=== PATIENT | female | born 1995 | race Caucasian/White ===

== ENCOUNTER 2020-06-16 16:17 | Outpatient (CLI) | payer OTHER ==
[~2020-06-16] VITALS: Ht 160 cm; Wt 126.1 kg
[2020-06-16 16:39] VITALS: BP 132/61
[2020-06-16] MEDS ORDERED: PRENTAB53 PO (16:42)
[2020-06-16] MEDS ORDERED: ASPI81CH33 PO (16:42)
--- NOTE | 2020-06-16 17:26 | IPNPDOC ---
Obstetrical Progress Note Date of Service Jun 16, 2020 Subjective Patient was at BIN appt and noted to have concern for tachycardia with FHR at 180bpm reported by Dr. Cole. BPP was completed by Dr. Cole that was reported to be 8/8 but unable to complete NST due to end of day in clinic. Patient reports good FM. Denies VB, LOF, or ctx's. Objective Vital Signs Date Time Temp Pulse Resp B/P (MAP) Pulse Ox O2 Delivery O2 Flow Rate FiO2 06/16/20 16:39 96.8 90 18 132/61 (84) Assessment Heart Rate (FHR): 150 Variability: Moderate Accelerations: Positive Decelerations: None Heart Rate Tracing: Category I Tocometer Contractions: No Assessment and Plan Status: Reassuring Additional Comments 24yo at 34+4wks presenting for NST due to concern for tachycardia on doppler in clinic. Patient found to have FHR baseline at 150bpm with mod variability, +accels, no decels for reactive NST. Patient counseled on FKCs, la bor precautions. She will f/u for BIN appt as scheduled. ISAK ASENCIO DO Jun 16, 2020 17:26
== END 2020-06-16 17:27 | disposition home or self-care (01) ==
LOC: M LDO 16:17
DX: O36.8331 Maternal care for abnormalities of the fetal heart rate or rhythm, third trimester, fetus 1 (principal); Z3A.34 34 weeks gestation of pregnancy
CPT/HCPCS: 59025; G0378; G0463

== ENCOUNTER → 2020-07-06 | Outpatient (CLI) | payer OTHER ==
[~2020-07-06] MED LIST: ASPI81CH33 PO; PRENTAB53 PO
--- NOTE | 2020-07-06 08:09 | REP ---
INDICATION: GROWTH COMPARISON: None. TECHNIQUE: Transabdominal obstetrical ultrasound with color Doppler evaluation. FINDINGS: Examination demonstrates a single live intrauterine in cephalic presentation. motion is identified by technologist. Placenta is noted anterior and grade 2 without evidence for placenta previa or abruption. Amniotic fluid volume is normal. Cervix appears closed.. Gestational age by LMP 37 weeks 3 days with DIANA 07/24/2020. Gestational age by current measurements 35 weeks 0 days with DIANA 08/10/2020. FHR equals 163 beats per minute. BPD: 8.4 cm 33 weeks 6 days HC: 31.8 cm 35 weeks 6 days AC: 33.1 cm 37 weeks 0 days FL: 6.8 cm 34 weeks 5 days HL: 5.9 cm 33 weeks 6 days HC/AC: 0.96 Estimated weight 2811 grams (23rdpercentile). ELYSSA: 8.7 cm (7.4-24.2) Umbilical artery SD ratio: 2.07 (1.57-3.40) IMPRESSION: Single live intrauterine in cephalic presentation age by current biometric measurements are less than expected based on given age by LMP. However, weight stays within normal range. <Electronically signed by Dontae Meng > 07/06/20 [id number]
== END ==
LOC: M RAD 06:53
PROVIDERS: ATTEND Obstetrics & Gynecology
DX: Z34.03 Encounter for supervision of normal first pregnancy, third trimester (principal); Z3A.35 35 weeks gestation of pregnancy

== ENCOUNTER 2020-07-26 08:09 | Inpatient (IN) | payer OTHER ==
[~2020-07-26] VITALS: Ht 160 cm; Wt 132.8 kg
[2020-07-26] VITALS (9 sets, daily range): BP systolic 109–142; BP diastolic 57–81
--- NOTE | 2020-07-26 10:10 | HPEPDOC ---
Obstetrical History & Physical General Date of Admission Jul 26, 2020 at 08:09 History of Present Illness 24 yo at 40+2 weeks gestation by LMP of [id number] c/w 11+1 week US on 16Ju l20 presents to L&D today for IOL for morbid obesity. Ms. Bonilla reports feeling well today and has no complaints. She denies any vaginal bleeding, leakage of fluid, or significant pelvic pain. She endorses movement. Chief Complaint: Induction of labor Information Provided By: Patient Age: 24 : 1 Term: 0 Pre-term: 0 Abortions: 0 Livin Care Care: Good Care Dating Final EDC: Jul 24, 2020 Final EDC for Daily Update: Jul 24, 2020 Final EDC by: LMP (LMP of [id number]) LMP: Oct 18, 2019 (DIANA by LMP of [id number] c/w 11+1 week US on [id number]) Antepartum Course Diagnos(e)s Morbid obesity --> pre BMI ~50 Varicella non immune Past Medical History Past Obstetrical History : Past Obstetrical History: Primgravida [employer] History: No pertinent history Past Medical History Medical History Asthma Surgical History: [place] teeth Family History Significant Family History: No pertinent family hx Social History Marital Status: Family situation: Spouse/partner home Psychosocial History: No pertinent psych hx * Smoker: non-smoker Alcohol: Denies Drugs: denies Imunizations Tdap status: needs Influenza Status: needs Allergies Coded Allergies: No Known Allergies (Verified Allergy, Unknown, 06/16/20) Medications Scheduled Vit,Calc76/Iron/Folic (Prenatabs Rx Tablet) 1 Each Tablet, 1 TAB PO DAILY Physical Examination Physical Examination GENERAL: Alert and oriented times three. ABDOMEN: Gravid and non-tender to touch. FETUS: Is vertex (VTX) by sterile vaginal examination (SVE) EXTREMITIES: No edema. Laboratory Data 24H LABS Laboratory Tests 2 07/26/20 08:20: Serology Scanned Report Hepatitis B Testing Urine Culture: No Growth, Contaminated Pertinent Laboratoy Data Blood Type: O+ RBC Antibody Screen: Negative HIV: Negative Hepatitis B: Negative Hepatitis C: Unknown Rapid Plasma Reagin: Nonreactive Rubella: Immune Varicella: Nonreactive Chlamydia/Gonorrhea: Negative Group B Streptococcus: Negative Quad Screen Test: Unknown Cystic Fibrosis: Negative Glucose Tolerance Test: 124 (Early 1hr GTT 124, repeat at 24-28 weeks was 123) Anatomy Ultrasound Placenta Location: Anterior Normal Anatomy: Yes Placenta Previa: No Other Ultrasounds growth scan on 06Jul2020: weight 2811 grams (23rd percentile) Steroid Therapy Steroid Therapy: No Vaginal Examination Dilation: None Effacement: 50% Station: -3 Cervical Consistency: Medium Cervical Position: Middle Presentation: Cephalic presentation Position: Vertex (occiput) Assessment Heart Rate (FHR): 135 Variability: Moderate Accelerations: Positive Decelerations: None Tocometer Contractions: Yes Frequency: irregular Assessment/Plan Assessment 24 yo at 40+2 weeks gestation presents to L&D for IOL for morbid obesity (pre BMI ~50). Plan Admit to L&D for IOL. Apply IV fluids. Labs per L&D protocol. GBS negative. Regular diet. Cervix unfavorable. Will start IOL with PO cytotec. Patient candidate for both IV analgesia and neuraxial analgesia. Anticipate . Labor and Delivery Counseling Vaginal / Operative vaginal delivery / C section counseling We discussed Labor inductions. We will deliver your baby through the vagina with possible assistance of forceps or vacuum device if needed for maternal or indications. Forceps and vacuum are devices that can assist with vaginal delivery when normal pushing efforts cannot achieve delivery on their own or when delivery is needed in an emergency for baby's well-being. Medications may be required to induce or augment (help) your labor in order to achieve a vaginal delivery. An episiotomy may be required to help your baby to delivery vaginally. You may also require repair of any lacerations or tears of your vagina or vulva that are caused by delivery. In some cases, emergencies can occur that require an emergency section delivery so quickly that there may not be enough time to stop and complete consent forms for section. Understand that if this occurs, your providers will discuss the need for a section with you before they proceed with surgery. section is the delivery of your baby through an incision in your abdomen. In some situations, section may be safer to mom and baby than continuing labor and is only performed when clinically indicated. Risks of vaginal delivery include but are not limited to: Bleeding, infection, injury to the vagina, pelvic structures, injury to baby, damage to the uterus, reactions to anesthesia, uterine rupture, risk of hysterectomy for life threatening bleeding, or . Medications used to induce or augment labor may increase your risk for infection, uterine tachysystole, uterine rupture, heart rate abnormalities, need for emergency delivery or possible hysterectomy, and hemorrhage. Additional risks for use of forceps and vacuum include: increased risk of perineal and vaginal lacerations, risk of urinary or bowel incontinence, increased risk of injury to baby with bruising, scratches, hematomas on the head, or intracranial bleeding. Ms. Bonilla appears to understand these risks and elects to proceed with IOL. She also consents to a blood transfusion if necessary. All questions answered. DO ABIMBOLA Sawant CHRISTOPHER J. DO Jul 26, 2020 10:10
[2020-07-26 11:24] LABS: HEMOGLOBIN 11.8 g/dl (12.0-15.5); MEAN CORPUSCULAR HEMOGLOBIN 26.9 pg (27.0-33.0); MEAN CORPUSCULAR HGB CONC 31.9 g/dl (32.0-36.5); MEAN CORPUSCULAR VOLUME 84.3 fl (80.0-96.0); PLATELET COUNT, AUTOMATED 209 10^3/uL (150-450); RED BLOOD COUNT 4.39 10^6/uL (4.00-5.40); WHITE BLOOD COUNT 12.9 10^3/uL (4.0-10.0)
[2020-07-26] MEDS: miSOPROStol 50MCG 1/2 TABLET PO SCH ×2 (11:27→16:38)
--- NOTE | 2020-07-26 21:39 | IPNPDOC ---
Text Note Date of Service The patient was seen on 07/26/20. NOTE Presented to room for assessment of progress. Eden endorses very mild c ramping, nothing significant. She denies any leakage of fluid or bleeding. She endorses movement. Chaperoned by RN Cervix: /-3. Sorto bulb placed with 60ml saline intrauterine. FHR: Cat I with moderate variability, +accels, no decels, intermittent contractions present. Will add low dose concurrent pitocin when able after last misoprostol dose. Pitocin not to exceed 10mU while sorto bulb is in place. IV analgesia ordered if patient desires. She's a candidate for an epidural when she progresses into active labor. All patient questions answered. DO Chung VS,Chele, I+O VS, Chele, I+O Laboratory Tests 07/26/20 11:18 Vital Signs Date Time Temp Pulse Resp B/P (MAP) Pulse Ox O2 Delivery O2 Flow Rate FiO2 07/26/20 17:43 98.6 71 18 139/71 (93) STEFANI DAILY DO Jul 26, 2020 21:39
[2020-07-26] MEDS ORDERED: OXYTOCIN DRIP 30 UNITS in IV 1 EA IV SCH (21:45)
[2020-07-26] MEDS ORDERED: PROMETHAZINE INJ 25 MG/ML VIAL (J2550) IV PRN (21:45)
[2020-07-26] MEDS ORDERED: BUTORPHANOL 2 MG/ML INJ (J0595) IV PRN (21:45)
[2020-07-26] MEDS ORDERED: OXYTOCIN 30 UNITS IN 0.9% NaCl 500ML IV BAG (J2590) As Ordered ONE (23:55)
[2020-07-27] VITALS (65 sets, daily range): BP systolic 87–161; BP diastolic 44–98
[2020-07-27] MEDS ORDERED: FENTANYL 2MCG/ML ROPIVACAINE 0.2% IN 0.9% NACL 100ML IVBAG As Ordered ONE (03:30)
[2020-07-27] MEDS: FENTANYL/ROPIVACAINE/NACL BAG 100 ML EPIDURAL SCH ×2 (05:15→11:40)
[2020-07-27] MEDS ORDERED: REFRIGERATOR IV KEYS XX PRN (05:15)
[2020-07-27] MEDS ORDERED: ePHEDrine SULFATE 25 MG/5 ML(5MG/ML) SYRINGE IV PRN (05:15)
[2020-07-27] MEDS ORDERED: NALOXONE INJ 0.4MG/1ML VIAL (J2310 PER 1MG) IV PRN (05:15)
[2020-07-27] MEDS ORDERED: EPIDURAL/PCA KEYS XX PRN (05:15)
[2020-07-27] MEDS ORDERED: EPIDURAL COMMENT XX SCH (05:15)
[2020-07-27] MEDS ORDERED: ONDANSETRON 4MG/2ML VIAL IV PRN (05:15)
[2020-07-27] MEDS ORDERED: diphenhydrAMINE 50MG/ML VIAL (J1200) IV PRN (05:15)
[2020-07-27] MEDS ORDERED: LACTATED RINGER'S 1000 ML IV PRN (05:15)
--- NOTE | 2020-07-27 06:27 | IPNPDOC ---
Text Note Date of Service The patient was seen on 07/27/20. NOTE Presented to room for assessment of progress. Eden is comfortable with an epidural in place. She underwent SROM at ~0300, clear fluid. Chaperoned by RN Cervix: 4-5/80/-2. FHR: Mostly Cat I with moderate variability, +accels. A few variable decels after epidural, but not persistent. Ctx regular Q2-4mins. Eden is progressing well on her own power (not on pitocin). Ephedrine given for hypotension after epidural along with fluid bolus. Continue current managem ent. Will place internal monitors if indicated. Safe to proceed. DO Chung VSChele, I+O VS, Chele, I+O Laboratory Tests 07/26/20 11:18 Vital Signs Date Time Temp Pulse Resp B/P (MAP) Pulse Ox O2 Delivery O2 Flow Rate FiO2 07/26/20 22:21 18 Room Air 07/26/20 17:43 98.6 71 139/71 (93) STEFANI DAILY DO Jul 27, 2020 06:27
--- NOTE | 2020-07-27 07:06 | IPNPDOC ---
Text Note Date of Service The patient was seen on 07/27/20. NOTE Difficulty tracing baby with positional changes. FSE and IUPC placed. Safe to proceed. VS,Fishbone, I+O VS, Fishbone, I+O Laboratory Tests 07/26/20 11:18 Vital Signs Date Time Temp Pulse Resp B/P (MAP) Pulse Ox O2 Delivery O2 Flow Rate FiO2 07/26/20 22:21 18 Room Air 07/26/20 17:43 98.6 71 139/71 (93) STEFANI DAILY DO Jul 27, 2020 07:06
[2020-07-27] MEDS: miSOPROStol 50MCG 1/2 TABLET PO SCH (08:10)
--- NOTE | 2020-07-27 10:15 | IPNPDOC ---
Obstetrical Progress Note Date of Service Jul 27, 2020 Subjective Pt c/o feeling pressure and urge to have a bowel movement Objective Vital Signs Date Time Temp Pulse Resp B/P (MAP) Pulse Ox O2 Delivery O2 Flow Rate FiO2 07/27/20 08:04 80 128/60 (82) 07/27/20 07:33 99.4 18 07/27/20 07:05 Room Air Assessment Heart Rate (FHR): 150 Variability: Moderate Accelerations: Positive Decelerations: Early Heart Rate Tracing: Category II (reasuring tracing with spontaneous recovery to baseline) Tocometer Contractions: Yes Frequency: regular (on 4mu pitocin) Duration: greater than 60 seconds Strength: resting tone palp/soft Sterile Vaginal Examination Dilation: 7 cm Effacement (%): 90% Station: -1, 0 Cervical Consistency: Medium Cervical Position: Middle Postion/Presentation: Cephalic presentation Assessment and Plan Age: 24 : 1 Term: 0 Pre-term: 0 Abortions: 0 Livin EGA at Admission: 40 (+4) Status: Reassuring Group B Streptococcus: Negative Anticipate: Vaginal Delivery Additional Comments 24yo sundar [id number] @40+4, O+, GBS-, SROM clear, IOL for BMI 46 Continue lr @125ml/hr, continuous internal monitoring, continue to titrate pitocin per protocol for adequate MVU, monitor for change in or maternal status, evaluate for change as indicated, anticipate vaginal delivery. WILBUR CALDWELL CNM Jul 27, 2020 10:15
[2020-07-27] MEDS: LR 1,000 ML IV SCH ×3 (10:17→12:55)
[2020-07-27] MEDS ORDERED: LACTATED RINGER'S 1000 ML IV STA (11:59)
[2020-07-27] MEDS ORDERED: ACETAMINOPHEN 500 MG TAB PO ONE (12:00)
[2020-07-27] MEDS: AMPICILLIN SOD 2 GM in D5W MINI-BAG PLUS 100 ML IV SCH ×2 (12:36→18:41)
--- NOTE | 2020-07-27 12:36 | IPNPDOC ---
Obstetrical Progress Note Date of Service Jul 27, 2020 Subjective Pt feeling pressure Objective Vital Signs Date Time Temp Pulse Resp B/P (MAP) Pulse Ox O2 Delivery O2 Flow Rate FiO2 07/27/20 12:05 100 140/65 (90) 07/27/20 11:52 101.7 07/27/20 10:48 20 07/27/20 10:21 Room Air Assessment Heart Rate (FHR): 190 Variability: Minimal to moderate Accelerations: Positive Decelerations: None Heart Patterns: Tachycardia Heart Rate Tracing: Category II Tocometer Contractions: Yes Frequency: every 2-2 min. Duration: greater than 60 seconds Strength: resting tone palp/soft, other (adequate MVU) Sterile Vaginal Examination Dilation: complete Effacement (%): 100% Station: 0 Postion/Presentation: Cephalic presentation Assessment and Plan Age: 24 : 1 Term: 0 Pre-term: 0 Abortions: 0 Livin Weeks & Days 40+4 Status: Reassuring Group B Streptococcus: Negative Anticipate: Vaginal Delivery Additional Comments Consulted Dr. Stauffer to notify of tachycardia and maternal temperature 101.[address] Stauffer requests 1.5mg/kg Gentamycin with 2gm Ampicillin in labor. 1000mL LR bolus, then return to 125mL/hr, 1000mg tylenol po x1, 2gm ampicillin IV q6hr in labor, 1.5 mg/kg Gentamycin iv q12 hrs in labor, continuous internal monitoring, monitor for change in or maternal status, begin pushing with urge, anticipate vaginal delivery WILBUR CALDWELL CNM Jul 27, 2020 12:36
[2020-07-27] MEDS: D5W IV SCH (12:58)
[2020-07-27] MEDS: GENTAMICIN IV SCH (12:58)
[2020-07-27] MEDS ORDERED: METHYLERGONOVINE MALEATE 0.2 MG TAB PO PRN (14:00)
[2020-07-27] MEDS ORDERED: BENZOCAINE 20% HEMORRHOIDAL OINTMENT 28GM TUBE TOP PRN (14:00)
[2020-07-27] MEDS ORDERED: MEASLES,MUMPS,RUBELLA VACCINE INJ (MMR-II) (90707) SC SCH (14:00)
[2020-07-27] MEDS ORDERED: ACETAMINOPHEN TAB 650MG DOSE (2X325MG) PO PRN (14:00)
[2020-07-27] MEDS ORDERED: RHOGAM 300 MCG (1500 IU) INJ (J2790) IM SCH (14:00)
[2020-07-27] MEDS ORDERED: OXYTOCIN DRIP 30 UNITS in IV 1 EA IV SCH (14:30)
[2020-07-27] MEDS: IBUPROFEN 800 MG TAB PO PRN (14:44)
--- NOTE | 2020-07-27 16:11 | DNPDOC ---
[facility] Delivery Note Delivery Note DATE OF DELIVERY: 27Jul2020 PREDELIVERY DIAGNOSIS: 40-4/7 weeks' gestation and labor. POST DELIVERY DIAGNOSIS: Delivered. PROCEDURE: Spontaneous vaginal delivery. WHEAT GROWER: [facility] Suly Caldwell CNM ANESTHESIA: Epidural. ESTIMATED BLOOD LOSS: 100 mL. FINDINGS: 6 pound 9 ounce female infant Courtney, Score 7/9, nuchal cord times 1. DELIVERY SUMMARY: Patient is a 24-year-old 1 now para 0 who was admitted to labor and delivery for IOL on 26Jul2020. Pt progressed to C/C/0 and made rapid progress with pushing to in OA presentation over an intact perineum. A tight nuchal cord and meconium stained amniotic fluid were noted after delivery of the head. The restituted to LAUREN, the right anterior shoulder delivered followed easily by the posterior shoulder. The was somersaulted towards the maternal right thigh and the cord manually reduced. The infant was placed immediately skin to skin on the maternal abdomen for initial care. Pitocin infusion was initiated per protocol. The cord was clamped x2 after pulsation ceased and cut by the FOB. Cord blood was collected and sent for testing. The placenta delivered spontaneously in [place] presentation with minimal bleeding. The cervix was swept with no clots located and the fundus found to be immediately firmed. The placenta was found to be intact with a marginal velamentous insertion. Exam revealed a hemostatic abrasion on the left labia. Mother rand baby entered the recovery phase in stable condition. SULY CALDWELL CNM Jul 27, 2020 16:11
[2020-07-27] MEDS: DOCUSATE SODIUM 100MG CAPSULE PO PRN (21:22)
[2020-07-28] MEDS: IBUPROFEN 800 MG TAB PO PRN ×2 (00:02→18:41)
[2020-07-28] MEDS: AMPICILLIN SOD 2 GM in D5W MINI-BAG PLUS 100 ML IV SCH ×3 (01:16→13:10)
[2020-07-28] MEDS: D5W IV SCH (02:04)
[2020-07-28] MEDS: GENTAMICIN IV SCH (02:04)
--- NOTE | 2020-07-28 05:22 | IPNPDOC ---
Progress Note Date of Service: Jul 28, 2020 Day#: 1 Progress Note SUBJECT: Eden is a 24-year-old 1 now Para 1 status post uncomplic ated spontaneous vaginal delivery at 40-4/7 weeks of 6 pound 9 ounce female Courtney, Score 7/9, nuchal cord times 1. doing well day # 1. She has been ambulating, voiding spontaneously without issue and tolerating regular diet. Breast feeding without issue. Reports lochia is like a normal period. Patient is ambulating well. OBJECTIVE: VITAL SIGNS: Within normal limits, afebrile. Alert and oriented times three. Normal work of breathing Heart rate: Regular rate and rhythm Abdomen: Fundus firm at U-2. ASSESSMENT: Eden is a 24-year-old 1 now Para 1 status post spontaneous vaginal delivery at 40-4/7 weeks of 6 pound 9 ounce female infant Courtney, Score 7/9, nuchal cord times 1. doing well day # 1. she was complicated by Chorioamnionitis and is now on gentamcin and ampicilin. no fever since delivery. Vitals within normal limits, afebrile, hemodynamically stable with no evidence of infection. PLAN: 1. Continue amp and gent for chorio for 24hrs. 2. Tylenol and Motrin for pain. 3. Encourage breast feeding and ambulation. 4. undecided on contraception for now- discussed risks of close interval 5. Routine PP visit in 6 weeks in clinic. 6. Discussed return precautions at length. VS, I&O, 24H, Fishbone Vital Signs/I&O Vital Signs Date Time Temp Pulse Resp B/P (MAP) Pulse Ox O2 Delivery O2 Flow Rate FiO2 07/27/20 18:00 96.8 106 18 118/60 (79) 07/27/20 10:21 Room Air I&O- Last 24 Hours up to 6 AM 07/28/20 06:00 Intake Total 3760.23 ml Output Total 1050 ml Balance 2710.23 ml CHERRY RAINEY MD Jul 28, 2020 05:22
[2020-07-28 06:00] VITALS: BP 124/71
[2020-07-28] MEDS: PRENATAL VITAMINS CHEWABLE TABLET PO SCH (13:11)
[2020-07-28 14:19] VITALS: BP 134/70
[2020-07-28 18:00] VITALS: BP 124/62
[2020-07-28] MEDS: DOCUSATE SODIUM 100MG CAPSULE PO PRN (19:36)
[2020-07-28 23:00] VITALS: BP 121/64
[2020-07-29 06:00] VITALS: BP 152/82
[2020-07-29] MEDS ORDERED: IBUP80TA PO (07:20)
[2020-07-29] MEDS ORDERED: DOK1CAP7 PO (07:20)
--- NOTE | 2020-07-29 08:41 | DSES ---
DISCHARGE SUMMARY DATE OF ADMISSION: 07/26/2020 DATE OF DISCHARGE: 07/29/2020 BRIEF HISTORY: This lady is a 24-year-old 1, now para 1 admitted at 40/2 weeks gestation for induction of labor because of morbid obesity, body mass index (BMI) is greater than 50. She had a spontaneous vaginal delivery with epidural, a female infant, 6 pounds 9 pounds, 2970 grams, scores of 7 and 9 at one and five minutes respectively. Admitting hemoglobin was 11.8, hematocrit 37.0 and platelets 209. Discharge vital signs: Blood pressure 152/82, respirations 20, pulse 72, temperature 97.6. In reviewing her blood pressures, they have all been within the normal range and this was automatic cuff as opposed to manual. The rest of the examination unremarkable. Normocephalic, atraumatic. Neck: Full range of motion. Pupils are equal, round and reactive to light. Distal pulses symmetric. No evidence of deep venous thrombosis (DVT) or superficial phlebitis. Chest is clear bilaterally to bases. No wheezes or rhonchi. No costovertebral angle (CVA) tenderness. Abdomen soft. Four quadrant bowel sounds are noted. No rashes, lesions or pruritus. No arthralgias or myalgias. No complaint of joint pain. No complaint of cough, wheeze, shortness of breath or dyspnea on exertion. No nauseousness, vomiting, diarrhea or constipation. No urgency or frequently. Patient is breast feeding, doing well. Picks up her medications at [facility] and has a six week checkup at [facility]. A 20 minute discussion. All questions were answered. We are awaiting blood cultures on the baby and hopefully, baby will be discharged today.
[2020-07-29] MEDS ORDERED: BOOSTRIX/ADACEL VACCINE (DIPHTH/PERTUSS/ACELL/TETANUS) 0.5ML SYR IM ONE (09:00)
[2020-07-29] MEDS: PRENATAL VITAMINS CHEWABLE TABLET PO SCH (09:26)
[2020-07-29] MEDS ORDERED: INFLUENZA QUADRIVALENT PF VACCINE 0.5ML SYRINGE IM ONE (10:00)
== END 2020-07-29 16:30 | disposition home or self-care (01) | DRG 805 ==
LOC: M LDI 08:09 → M OBS 07-27 17:04
PROVIDERS: ADMIT Registered Nurse; ATTEND Registered Nurse
PROC: 3E0P7GC Introduction of Other Therapeutic Substance into Female Reproductive, Via Natural or Artificial Opening (ICD-10-PCS; 2020-07-26)
PROC: 10E0XZZ Delivery of Products of Conception, External Approach (ICD-10-PCS; principal; 2020-07-27)
DX: O99.214 Obesity complicating childbirth (principal); Z37.0 Single live birth; O41.1230 Chorioamnionitis, third trimester, not applicable or unspecified; E66.01 Morbid (severe) obesity due to excess calories; O48.0 Post-term pregnancy; Z3A.40 40 weeks gestation of pregnancy; O69.1XX0 Labor and delivery complicated by cord around neck, with compression, not applicable or unspecified; O77.0 Labor and delivery complicated by meconium in amniotic fluid; O69.89X0 Labor and delivery complicated by other cord complications, not applicable or unspecified

== ENCOUNTER 2021-07-08 14:08 | Emergency (ER) | payer OTHER ==
[~2021-07-08] VITALS: Ht 162.6 cm; Wt 139.5 kg
[~2021-07-08 14:08] MED LIST changes: +DOK1CAP4 PO; +IBUP80TA PO
[2021-07-08 19:22] VITALS: BP 136/76
[2021-07-08 22:08] LABS: BASO # 0.1 10^3/uL (0.0-0.2); BASO % 0.5 % (0.0-1.0); EOS % 0.4 % (0.0-3.0); HEMATOCRIT 40.4 % (36.0-47.0); HEMOGLOBIN 13.1 g/dl (12.0-15.5); LYMPH # 2.6 10^3/uL (1.5-5.0); MEAN CORPUSCULAR HEMOGLOBIN 26.7 pg (27.0-33.0); MEAN CORPUSCULAR HGB CONC 32.4 g/dl (32.0-36.5); MEAN CORPUSCULAR VOLUME 82.4 fl (80.0-96.0); MONO # 0.6 10^3/uL (0.0-0.8); MONO % 5.3 % (2.0-8.0); NEUTROPHILS # 7.2 10^3/uL (1.5-8.5); NEUTROPHILS % 68.3 % (36.0-66.0); PLATELET COUNT, AUTOMATED 216 10^3/uL (150-450); WHITE BLOOD COUNT 10.6 10^3/uL (4.0-10.0)
[2021-07-08 22:15] LABS: RSV AMPLIFICATION NEGATIVE (NEGATIVE)
[2021-07-08 22:31] LABS: HCG, SERUM QUALITATIVE NEGATIVE (NEGATIVE)
[2021-07-08 22:33] LABS: ALBUMIN 3.6 GM/DL (3.2-5.2); ALT/SGPT 44 U/L (12-78); BILIRUBIN,DIRECT 0.2 MG/DL (0.0-0.2); BILIRUBIN,TOTAL 0.5 MG/DL (0.2-1.0); BLOOD UREA NITROGEN 9 MG/DL (7-18); CALCIUM LEVEL 9.3 MG/DL (8.5-10.1); CARBON DIOXIDE LEVEL 27 MEQ/L (21-32); CHLORIDE LEVEL 109 MEQ/L (98-107); CREATININE FOR GFR 0.64 MG/DL (0.55-1.30); GLOMERULAR FILTRATION RATE > 60.0 (>60); GLUCOSE, FASTING 93 MG/DL (70-100); LIPASE 103 U/L (73-393); POTASSIUM SERUM 4.2 MEQ/L (3.5-5.1); SODIUM LEVEL 144 MEQ/L (136-145); TOTAL PROTEIN 7.4 GM/DL (6.4-8.2)
[2021-07-08] MEDS ORDERED: ISOVUE-370 76% 100ML VIAL As Ordered ONE (23:32)
[2021-07-09] MEDS ORDERED: TAMSULOSIN 0.4 MG CAP PO ONE (01:00)
[2021-07-09] MEDS ORDERED: FLOM0.4C39 PO (01:02)
[2021-07-09] MEDS ORDERED: ONDA4TAB6 PO (01:02)
[2021-07-09] MEDS ORDERED: KETO10TAB PO (01:02)
== END 2021-07-09 01:29 | disposition home or self-care (01) ==
LOC: M ED 14:08
DX: N21.1 Calculus in urethra (principal); E66.9 Obesity, unspecified; J45.909 Unspecified asthma, uncomplicated; K76.0 Fatty (change of) liver, not elsewhere classified; R16.0 Hepatomegaly, not elsewhere classified; N28.1 Cyst of kidney, acquired
CPT/HCPCS: 74177; 80047; 80048; 80076; 83690; 84703; 85025; 87631; 99283; Q9967